=== PATIENT | female | born 1970 | race Caucasian/White ===

== ENCOUNTER 2017-12-14 21:07 | Emergency (ER) | payer BC ==
[2017-12-14 21:23] VITALS: BP 139/85
--- NOTE | 2017-12-14 22:09 | EDPHY ---
H & P Stated Complaint: TOP OF R HAND BRUSING NOTED TODAY DENIES HITTING HAND Time Seen by Provider: 12/14/17 22:09 HPI/ROS: HPI CHIEF COMPLAINT: Broken blood vessel in the back of the right hand. HISTORY OF PRESENT ILLNESS: Patient very pleasant 47-year-old female she just flew from [facility] to visit her friend here in [place]. She noticed on the back of her right hand there is a vein that appeared to be abnormal. It appears to be a broken blood vessel. She denies any trauma or significant pain. Denies fever. She is not on any blood thinners. There is no significant redness. She denies any trauma to the back of the hand. Past Medical History: No medical history Past Surgical History: No surgical history Social History: Denies drugs alcohol tobacco. Lives in [facility] Family History: Noncontributory ROS REVIEW OF SYSTEMS: A comprehensive 10 point review of systems is otherwise negative aside from elements mentioned in the history of present illness. Exam Constitutional appears well nontoxic triage nursing summary reviewed, vital signs reviewed, awake/alert. Eyes normal conjunctivae and sclera, EOMI, PERRLA. HENT normal inspection, atraumatic, moist mucus membranes, no epistaxis, neck supple/ no meningismus, no raccoon eyes. Respiratory clear to auscultation bilaterally, normal breath sounds, no respiratory distress, no wheezing. Cardiovascular rate normal, regular rhythm, no murmur, no edema, distal pulses normal. Gastrointestinal soft, non-tender, no rebound, no guarding, normal bowel sounds, no distension, no pulsatile mass. Genitourinary no CVA tenderness. Musculoskeletal no midline vertebral tenderness, full range of motion, no calf swelling, no tenderness of extremities, no meningismus, good pulses, neurovascularly intact. Skin right dorsum hand there is a broken vein with ecchymosis present, there is no redness, no significant tenderness, no crepitus, no hardness of the vein, no evidence of phlebitis Neurologic awake, alert and oriented x 3, AAOx3, moves all 4 extremities equally, motor intact, sensory intact, CN II-XII intact, normal cerebellar, normal vision, normal speech. Psychiatric normal mood/affect. Heme/Lymph/Immune no lymphadenopathy. Differential Diagnosis: Includes but is not limited to in a particular order broken capillary comma broken vein, venous bleeding, thrombophlebitis Medical Decision Making: Plan for this patient just recommend cool compresses watch closely gets more painful more swollen or red or warm start treatment for phlebitis with aspirin and warm compresses. I discussed this with the patient at length. Additionally she is from out of town if over the weekend she has worsening symptoms she should return emergency room I do not feel that imaging is necessary at this time. Most likely broken blood vessel. Source: Patient - Personal History LMP (Females 10-55): IUD In Place Current Tetanus/Diphtheria Vaccine: Yes Current Tetanus Diphtheria and Acellular Pertussis (TDAP): Yes - Medical/Surgical History Hx Asthma: No Hx Chronic Respiratory Disease: No Hx Diabetes: No Hx Cardiac Disease: No Hx Renal Disease: No Hx Cirrhosis: No Hx Alcoholism: No Hx HIV/AIDS: No Hx Splenectomy or Spleen Trauma: No Other PMH: DENIES - Social History Smoking Status: Never smoked Constitutional: Initial Vital Signs Temperature (C) 36.8 C 12/14/17 21:21 Heart Rate 72 12/14/17 21:21 Respiratory Rate 18 12/14/17 21:21 Blood Pressure 139/85 H 12/14/17 21:21 O2 Sat (%) 96 12/14/17 21:21 O2 Delivery Mode Room Air Allergies/Adverse Reactions: codeine Allergy (Verified 12/14/17 21:23) rofecoxib [From Vioxx] Allergy (Verified 12/14/17 21:22) Home Medications: Medication Instructions Recorded NK [No Known Home Meds] 12/14/17 Departure - Departure Disposition: Home, Routine, Self-Care Clinical Impression: Vein symptom Condition: Good Instructions: Superficial Thrombophlebitis (ED) Additional Instructions: 1. If this gets more painful red swollen return emergency room. You may also do warm compresses and take aspirin if it becomes painful and red. That is the treatment for superficial thrombophlebitis. 2. I believe you have a broken blood vessel. 3. Return if this becomes worse more swollen more painful. Referrals: NONE *PRIMARY CARE P,. [Primary Care Provider] - As per Instructions
== END 2017-12-14 22:32 | disposition home or self-care (01) ==
DX: I87.8 Other specified disorders of veins (principal)